=== PATIENT | female | born 1985 | race Caucasian/White ===

== ENCOUNTER 2016-11-05 14:02 | Emergency (ER) | payer OTHER ==
[~2016-11-05] VITALS: Ht 167.6 cm; Wt 63.6 kg
[2016-11-05 14:34] VITALS: BP 126/83; PULSE 115; RESP 18; O2SAT 100
--- NOTE | 2016-11-05 15:23 | ED.REPORT ---
HPI-Neck Pain Free Text HPI Notes Nov 05, 2016 ED Provider: Dr. Oshea Pt is a healthy 31 y/o female w/ a hx of scoliosis presenting to the ED c/o gradually worsening bilateral (L>R) paraspinous neck pain onset yesterday. She has experienced similar pain in the past thought to be musculoskeletal. She c/o associated left superior shoulder pain. She denies fever, bowel or bladder incontinence, sore throat, numbness/weakness/tingling of her arms or legs. She denies any recent trauma. Nursing Notes Stated Complaint: UNBEARABLE NECK AND SHOULDER PAIN Chief Complaint: General Complaint Nursing Notes Reviewed: Yes Allergies: Coded Allergies: No Known Allergies (Unverified , 11/05/16) Scheduled PRN Cyclobenzaprine (Cyclobenzaprine) 10 Mg Tablet 10 MG PO TID PRN PRN Spasm General Time Seen by Provider: 15:24 Chief Complaint Neck pain Hx Obtained From: Patient Arrived By: Walk-in Sudden in Onset?: No Onset Occurred: Yesterday Symptom Duration: Since onset Progression Since Onset: Gradually worsening Location: : Lateral neck left: Lateral neck right Quality: Painful Severity: Current: Moderate Severity: Maximum: Moderate Past Medical History Past Medical History Scoliosis Otherwise denies Past Surgical History None reported Smoking History Unknown if Ever Smoker Ambulatory Status Independent Review of Systems Constitutional: Denies: Fever Ears / Nose / Throat: Denies: Sore throat GI: Denies: Nausea, Vomiting Musculoskeletal: Reports: Neck pain Neurologic: Denies: Numbness, Problem walking, Weakness Complete sys rev & neg: except as marked. Physical Exam Initial Vital Signs Vital Signs (First) Date Time Temp Pulse Resp B/P Pulse Ox O2 Delivery O2 Flow Rate FiO2 11/05/16 14:34 36.0 115 18 126/83 100 Room Air Initial VS: Reviewed, Vital signs abnormal Head / Eyes: Atraumatic, Normocephalic Respiratory: Breath sounds normal, Clear to auscultation, No respiratory distress Cardiovascular: Regular rate & rhythm, Heart sounds normal, Intact distal pulses Abdomen / GI: Soft, Non-tender Extremities: Vascular intact, Neuro intact Skin: Warm, Dry, No cyanosis Psychiatric: Mood/affect normal, Behavior normal, Normal thought content General/Constitutional: Awake, Alert, No acute distress, Well appearing, Cooperative, Not toxic appearing Neck: Atraumatic, No meningismus, No swelling, No midline vertebral tend Trapezius muscle tenderness bilaterally, worse on left Limited active ROM Neurologic: Oriented X3, Speech NL, No motor deficits, No sensory deficits, CN II - XII intact, Cerebellar NL, Memory NL Normal motor and sensory of the deltoids, 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 No signs of infection, no particular high risk features for occult infection. No history of IV drug abuse, not diabetic. Anna Grace intact without symptoms or physical exam findings of any particular spinal cord or nerve root compression. Will treat with NSAIDs and cyclobenzaprine. Recommend close outpatient follow-up. Return precautions given. Re-Evaluation/Progress : Time of Eval: 15:31 Re-Evaluation/Progress Note: F/U instructions and RTER warnings given. All questions addressed. Counseled Regarding: Diagnosis, Need for follow-up, When/why to return to ED Discharge & Departure Primary Impression: Neck muscle spasm Disposition: Home Discharge Condition All VS Reviewed: Yes Condition: Stable Patient Instructions: Acute Neck Pain (ED), Muscle Spasm (ED) Additional Instructions: I suspect your pain is caused by muscle spasm. Your physical exam is reassuring. Take Ibuprofen 800 mg every 8 hours as needed for aching pain. Take cyclobenzaprine as directed for muscle spasm. This medication is sedating so I recommend no driving or alcohol consumption while taking it. Use ice packs 15 minutes on at a time a few times each day. Perform gentle stretching exercises throughout the day. Return to the emergency department if you experience new numbness/tingling/ weakness of your arms or legs, bowel or bladder incontinence, or for other concerning symptoms. Referrals: [facility] (PCP) ED Scribe Statement Portions of this note were transcribed by Toney Lizarraga. I, Dr. Oshea personally performed the history, physical exam and medical decision-making; I reviewed and confirmed the accuracy of the information in the transcribed note. copies to: [facility] Timothy S DO Nov 05, 2016 15:23 TONEY LIZARRAGA Nov 05, 2016 15:30
[2016-11-05] MEDS ORDERED: CYCL10TA9 PO (15:48)
[2016-11-05 16:14] VITALS: BP 124/86; PULSE 75; RESP 16; O2SAT 98
== END 2016-11-05 16:15 | disposition home or self-care (01) ==
LOC: SED 14:02
DX: M62.838 Other muscle spasm (principal); M25.512 Pain in left shoulder
CPT/HCPCS: 96372; 99283; J1885